=== PATIENT | male | born 1945 | race Two or more races ===

== ENCOUNTER → 2018-10-27 | Outpatient (CLI) | payer OTHER ==
[~2018-10-27] MED LIST: IOHEXOL 350 MG/ML 100ML IJ ONE; METOPROLOL TARTRATE 1MG/1ML-5ML VIAL IV ONE; NITROGLYCERIN 0.4 MG SL TAB SL ONE
== END | disposition home or self-care (01) ==
LOC: EDSEX 08:43 → CT 08:43
PROVIDERS: ATTEND Specialist
DX: I77.9 Disorder of arteries and arterioles, unspecified (principal)
CPT/HCPCS: 75571; 75574; Q9967

== ENCOUNTER 2021-11-08 07:07 | Day surgery (SDC) | payer OTHER ==
[2021-11-08] VITALS (7 sets, daily range): BP systolic 86–100; BP diastolic 53–61
[~2021-11-08] VITALS: Ht 177.8 cm; Wt 93.0 kg
[~2021-11-08 07:07] MED LIST changes: +ALBUAER3 IN; +ASPI-498 PO; +ATOR40TA52 PO; +CETI10CH PO; +CHOL1TAB42 PO; +CYAN500L3 PO; +FLUT1SPR5; +FLUT250M2 INH; -IOHEXOL 350 MG/ML 100ML IJ ONE; +ISOS20TA49 PO; +MELA3TAB27 PO; +METO25TA5 PO; -METOPROLOL TARTRATE 1MG/1ML-5ML VIAL IV ONE; +NITR0.4S29 SL; -NITROGLYCERIN 0.4 MG SL TAB SL ONE; +OMEG1CAP31 PO
[2021-11-08] MEDS ORDERED: IODIXANOL 320MG/ML 100ML BTL IV ONE (07:29)
[2021-11-08] MEDS ORDERED: HEPARIN IN NS 1000Units/500mL 1,500 ML ONE (07:29)
[2021-11-08] MEDS ORDERED: VERAPAMIL 2.5MG/ML INJ 2ML VIAL IV ONE (07:48)
[2021-11-08] MEDS ORDERED: fentaNYL CITRATE 100 MCG/2 ML VL ONE (07:48)
[2021-11-08] MEDS ORDERED: HEPARIN SODIUM (PORCINE) 5000 UNITS/ML 1ML VIAL ONE (07:48)
[2021-11-08] MEDS ORDERED: ANGIOMAX 250 MG VIAL IV ONE (07:48)
[2021-11-08] MEDS ORDERED: MIDAZOLAM HCL 2MG/2ML 2ml VIAL (1mg/ml) ONE (07:48)
[2021-11-08] MEDS ORDERED: SODIUM CHL 0.9% 0 ML ONE (07:49)
[2021-11-08] MEDS ORDERED: LIDOCAINE 2%HCL (LOCAL ANESTH.) INJ 10ml MDV ONE (07:54)
== END 2021-11-08 11:00 | disposition home or self-care (01) ==
LOC: CATH 07:07
PROVIDERS: ATTEND Internal Medicine Cardiovascular Disease
DX: R94.39 Abnormal result of other cardiovascular function study (principal); I25.10 Atherosclerotic heart disease of native coronary artery without angina pectoris; I10 Essential (primary) hypertension; E78.5 Hyperlipidemia, unspecified; Z86.73 Personal history of transient ischemic attack (TIA), and cerebral infarction without residual deficits; Z95.1 Presence of aortocoronary bypass graft; Z87.891 Personal history of nicotine dependence; Z79.82 Long term (current) use of aspirin; Z20.822 Contact with and (suspected) exposure to COVID-19
CPT/HCPCS: 93459; C1887; C1894; J1644; J2001; J2250; J3010; J7030; Q9967; U0003; 99152; 99153